=== PATIENT | male | born 1990 | race African-American/Black ===

== ENCOUNTER 2017-02-15 21:44 | Emergency (ER) | payer MEDICAID, OTHER ==
[~2017-02-15] VITALS: Ht 175.3 cm; Wt 65.2 kg
[2017-02-15 21:45] VITALS: BP 120/69
[2017-02-15] MEDS ORDERED: HYDROcodone/APAP 5/325 TABLET PO STA (22:19)
[2017-02-15] MEDS ORDERED: DIPH,PERTUSS(ACELL),TET VAC/PF 0.5 ML IM-VACC ONE ×2 (22:38→23:00)
[2017-02-15] MEDS ORDERED: HYDROcodone/APAP 5/325 TABLET ONE (22:38)
== END 2017-02-15 23:45 | disposition home or self-care (01) ==
LOC: ED 23:21
DX: S91.331A Puncture wound without foreign body, right foot, initial encounter (principal); X58.XXXA Exposure to other specified factors, initial encounter; Y93.89 Activity, other specified; Y92.89 Other specified places as the place of occurrence of the external cause; Y99.8 Other external cause status
CPT/HCPCS: 90471; 90715